=== PATIENT | female | born 1950 | race Caucasian/White ===

== ENCOUNTER 2017-01-08 21:23 | Emergency (ER) | payer MEDICARE, MEDICAID ==
[~2017-01-08] VITALS: Ht 167.6 cm; Wt 72.6 kg
[~2017-01-08 21:23] MED LIST: BUPR100T4 PO; ESTR-7 PO; FLUT16SP2 NS; LAMO100T2 PO
--- NOTE | 2017-01-08 22:10 | NUR ---
Patient discharged to home in stable conditon. Written and verbal after care instructions given. Patient verbalizes understanding of instructions.
== END 2017-01-08 22:11 | disposition home or self-care (01) ==
LOC: ER 21:34
DX: L03.116 Cellulitis of left lower limb (principal); Z88.1 Allergy status to other antibiotic agents; Z88.2 Allergy status to sulfonamides; Z88.8 Allergy status to other drugs, medicaments and biological substances
CPT/HCPCS: 99283; A4663